=== PATIENT | female | born 1990 | race Caucasian/White ===

== ENCOUNTER 2020-08-28 10:28 | Observation (INO) ==
--- NOTE | 2020-08-23 11:29 | Anesthesiology Consultation ---
Date of Service August 23, 2020 Assessment & Plan (1) Encounter for pre-operative examination: COVID Status: As of 08/23 nurse assessment, patient denies travel to endemic area, known exposure/sick contacts, or symptoms of COVID19. Preoperative COVID19 testing completed on 08/22, results pending. HCG AM DOS Chart Review Chart Review: Acceptable Risk for Surgery and Patient NOT seen in Pre Admission Testing History Surgery Operation Date: 08/28/20 11:50 Proposed Procedures p Panniculectomy - Dina Sam MD Height/Weight Height: 5 ft 5 in Weight: 72.575 kg Allergies Allergy/AdvReac Type Severity Reaction Status Date / Time Penicillins Allergy Unknown AMOXIL--RASH, Verified 08/22/20 16:30 KEFLEX IS OK amoxicillin Allergy Rash Unverified 08/22/20 16:30 azithromycin Allergy Rash Unverified 08/22/20 16:30 erythromycin base AdvReac Unknown UPSET Verified 08/22/20 16:30 STOMACH, N/V CONTRCEPTIVES AdvReac Unknown BCPs CAUSE Uncoded 08/22/20 16:30 MIGRAINES Medications Home Medications Medication Instructions Recorded Confirmed Last Taken bupropion HCl [Wellbutrin XL] 450 mg PO QAM 11/04/19 08/22/20 11/03/19 fenofibrate nanocrystallized 145 mg PO QAM 11/04/19 08/22/20 11/03/19 [Tricor] oxycodone-acetaminophen 5 mg-325 1 tab PO Q4H PRN #18 tab 08/19/20 08/19/20 Unknown mg tablet Past Medical History Medical History (Updated 08/23/20 @ 11:29 by Hansel Reyes) History of renal stone Hyperlipidemia Osteoarthritis Weight loss, intentional Has lost 100lbs over the past 3 years via diet/exercise. Past Family History Family History Father Diabetes Grandmother (Maternal) Diabetes Other No family history of adverse response to anesthesia Past Surgical History Surgical History History of surgery left hand fifth digit History of tooth extraction S/P thyroid biopsy benign Social History Smoking Status: Never smoker Do You Dip or Chew Tobacco: No Hx Alcohol Use: Yes Alcohol type: hard liquor alcohol intake frequency: holidays/special occasions only Alcohol Intake Frequency Comment: jannie Ledbetter Substance Use: No substance use type: does not use Testing Laboratory Results 08/22/20 WBC: 3.89 H/H: 11.8/35.4 PLATELETS: 156 SODIUM: 142 POTASSIUM: 3.6 CHLORIDE: 110 CO2: 26 BUN: 22 CREATININE: 1.09 GLUCOSE: 94 PT: 10.9 PTT: 26.2 INR: 1.1
[~2020-08-28 10:28] MED LIST: LACTATED RINGER'S 1,000 ML IV SCH; ceFAZolin 2000MG 2,000 MG/15 ML SYR IV SCH
[2020-08-28] MEDS ORDERED: fentaNYL citrate 100 MCG/2 ML VIAL ONE ×3 (11:00→11:43)
[2020-08-28] MEDS ORDERED: ONDANSETRON INJ 2 MG/ML 2 ML VIAL ONE (11:00)
[2020-08-28] MEDS ORDERED: MIDAZOLAM HCL 1 MG/ML 2ML VIAL ONE (11:00)
[2020-08-28] MEDS ORDERED: GLYCOPYRROLATE 0.2 MG/ML VIAL ONE (11:00)
[2020-08-28] MEDS ORDERED: NEOSTIGMINE METHYLSULFATE 5 MG/5 ML SYR ONE (11:00)
[2020-08-28] MEDS ORDERED: DEXAMETHASONE SOD INJ 4 MG/ML VIAL ONE (11:00)
[2020-08-28] MEDS ORDERED: LIDOCAINE HCL 2% 2 ML VIAL/AMP(20MG/ML) INFIL ONE (11:00)
[2020-08-28] MEDS ORDERED: PHENYLEPHRINE HCL 10 MG/ML VIAL ONE (11:00)
[2020-08-28] MEDS ORDERED: ePHEDrine sulfate 50 MG/ML AMP ONE (11:00)
[2020-08-28] MEDS ORDERED: SUCCINYLCHOLINE CHLORIDE 20 MG/ML 10 ML VIAL IV ONE (11:00)
[2020-08-28] MEDS ORDERED: PROPOFOL IV EMULSION 10 MG/ML 20 ML VIAL IV ONE (11:00)
[2020-08-28] MEDS ORDERED: ePHEDrine sulfate 50 MG/ML AMP IV PRN (11:04)
[2020-08-28] MEDS ORDERED: HYDROmorphone INJ 2 MG/ML SYR/VIAL IV PRN (11:04)
[2020-08-28] MEDS ORDERED: ONDANSETRON INJ 2 MG/ML 2 ML VIAL IV PRN ×3 (11:04→15:40)
[2020-08-28] MEDS ORDERED: PROMETHAZINE HCL 6.25 MG in SODIUM CHLORIDE 0.9% 50 ML IV PRN (11:04)
[2020-08-28] MEDS ORDERED: ATROPINE SULFATE 0.1 MG/ML 10ML SYR IV PRN (11:04)
[2020-08-28] MEDS ORDERED: BUPIVACAINE 0.5 % 5 MG/1 ML PF 10ML VIAL ONE (11:24)
[2020-08-28] MEDS ORDERED: BUPIVACAINE LIPOSOME 1.3% 266 MG/20 ML VIAL ONE (11:31)
--- NOTE | 2020-08-28 11:35 | History & Physical Bridge Note ---
Date of Service August 28, 2020 History & Physical Bridge Note I have examined the patient, reviewed the History & Physical and in the interval since the performance of the History & Physical I have noted the following changes of clinical significance: took zyrtec for a rash last week, which resolved.
[2020-08-28] MEDS ORDERED: FAMOTIDINE/PF 20 MG/2 ML VIAL IV ONE (12:05)
[2020-08-28] MEDS ORDERED: BUPIVACAINE 0.25% 30 ML VIAL ONE (12:10)
[2020-08-28] MEDS ORDERED: LIDOCAINE/EPINEPHRINE 1% 20 ML VIAL ONE (12:10)
[2020-08-28] MEDS ORDERED: SCOPOLAMINE 1 MG TDSY TD ONE (12:13)
[2020-08-28] MEDS ORDERED: METOCLOPRAMIDE HCL INJ 5 MG/ML 2 ML VIAL ONE (12:35)
[2020-08-28] MEDS ORDERED: diphenhydrAMINE 50 MG/ML VIAL ONE (12:36)
--- NOTE | 2020-08-28 15:14 | Post Operative Brief Note ---
PG Immediate Post Op with CF Date of Surgery August 28, 2020 Pre & Post Diagnosis Operation Date: 08/28/20 11:50 Pre-Op Diagnosis: Abdominal Pannus Post-Op Diagnosis: Abdominal Pannus I identified the patient and participated in the time-out.: Yes Procedure Operation Date: 08/28/20 11:50 Actual Procedures p Panniculectomy(Not Applicable) - Dina Sam MD Surgeon Dina Sam MD Spool Sander Mercedez South PA-C Estimated Blood Loss 25 Findings Consistent with Post-Op Diagnosis Specimens Specimen Description: Permanent A. Pannus Drains Other (channel drain x2)
--- NOTE | 2020-08-28 15:16 | Operative Report ---
PG Post Operative Report Pre & Post Diagnosis Operation Date: 08/28/20 11:50 Pre-Op Diagnosis: Abdominal Pannus Post-Op Diagnosis: Abdominal Pannus I identified the patient and participated in the time-out.: Yes Procedure Operation Date: 08/28/20 11:50 Actual Procedures p Panniculectomy(Not Applicable) - Dina Sam MD Surgeon Dina Sam MD Clinical Education Specialist Mercedez South PA-C Estimated Blood Loss 25 Findings Consistent with Post-Op Diagnosis Specimens pannus Drains JPx2 Anesthesia Type General Complications none Disposition Disposition: Recovery Room Indications s/p massive weight loss with overhanging abdominal pannus Description of Procedure Risks, benefits, and alternatives of the procedure were explained to the patient who agreed and signed consent. She was identified and marked in the preoperative holding area. She was brought to the operating room where she was positioned supine and placed under general anesthesia without incident. Santana catheter was placed. Surgical site was prepped and draped sterilely. A time-out procedure was performed. I reassessed my markings which included a lower horizontal abdominal incision with the midportion 7 cm above the vulvar commissure. Incision was marked bilaterally to the ASIS. I began by injecting 1% lidocaine with epinephrine along the planned incision. The lower abdominal incision was made using a 15-blade scalpel to incise epidermis and superficial dermis followed by electrocautery to incise deep dermis, subcutaneous fat, Daya's fascia down to the abdominal wall. Care was taken to bevel superiorly in order to avoid encountering the inguinal region. Electrocautery was used to elevate the anterior abdominal skin flap ligating the perforating vessels with 3-0 Vicryl ties and electrocautery. Dissection was carried up to the level of the umbilicus in the midline. At this point, a 15-blade scalpel was used to circumscribe the umbilicus. A vertical midline incision was then made from the incision to the umbilicus and divided in the midline using electrocautery. The umbilicus was then dissected out using electrocautery down to abdominal wall. The umbilical stalk appeared viable throughout the procedure. In order to facilitate inset of the umbilicus, dissection was continued for about an additional 6 cm superior to the umbilicus in the midline. At this point, the bed was flexed and the mid portion of the superior skin flap was inset above the mons pubis using 2-0 Vicryl suture. Skin flaps were marked for excision. A 15-blade scalpel was used to make these incisions and the incision was deepened through dermis, subcutaneous fat, Daya's fat using electrocautery. Subscarpal fat was resected directly. A 15 Slovak Johan drains were placed in the wound bed and brought out through a separate stab incision in the mons pubis. The drains were sutured into place using 3-0 nylon. The umbilicus was brought out through an inverted triangular incision in the abdominal wall. This was performed using a 15-blade scalpel. Wound closure was then begun lateral to medial using 2-0 Vicryl Daya's fascia sutures, 2-0 Vicryl deep dermal sutures, 2-0 PDO running superficial Quill suture, 3-0 Monocryl running subcuticular suture. Umbilicus was brought out through the inverted triangle incision and was sutured into place using 4-0 chromic half buried horizontal mattress sutures. The umbilicus was dressed using Xeroform and the incision was dressed using Dermabond Prineo followed by dry dressings and an abdominal binder. Prior to closure, a total of 10 mL of 0.25% Marcaine plain were injected into the fascia as well as along the incisions. The procedure was tolerated well. The patient was awakened and transferred to recovery in satisfactory condition. Mercedez South PA-C was present and scrubbed throughout the entire procedure and was instrumental in providing retraction of the pannus and assisting in simultaneous wound closure. I attest to the content of the Intraoperative Record and any orders documented therein. Any exceptions are noted below.
[2020-08-28] MEDS ORDERED: PROMETHAZINE HCL 12.5 MG in SODIUM CHLORIDE 0.9% 50 ML IV PRN (15:37)
[2020-08-28] MEDS ORDERED: diphenhydrAMINE 50 MG/ML VIAL IV PRN (15:37)
[2020-08-28] MEDS ORDERED: LORazepam 0.5 MG TAB PO PRN (15:37)
[2020-08-28] MEDS ORDERED: oxyCODONE/ACETAMINOPHEN 5mg/325mg TAB PO PRN (15:37)
[2020-08-28] MEDS ORDERED: ACETAMINOPHEN 500 MG TAB PO PRN (15:37)
[2020-08-28] MEDS ORDERED: diphenhydrAMINE Capsule 25 MG CAP PO PRN (15:37)
[2020-08-28] MEDS: fentaNYL citrate 100 MCG/2 ML VIAL IV PRN ×2 (16:12→16:18)
--- NOTE | 2020-08-28 16:28 | Anesthesiology Progress Note ---
Date of Service August 28, 2020 Anesthesia Post Procedure Vital Signs Vital Signs: Temp Pulse Pulse Resp BP Pulse Ox 08/28/20 16:00 104 H 16 126/72 99 08/28/20 15:50 103 H 16 129/72 100 08/28/20 15:42 36.5 C 107 H 16 131/74 99 08/28/20 10:35 36.7 C 84 16 123/67 100 Transfer of Care Handoff Completed per policy Notes Mental Status: alert / awake / arousable Patient Amnestic to Procedure: Yes Nausea / Vomiting: adequately controlled Pain: adequately controlled Airway Patency, RR, SpO2: stable & adequate BP & HR: stable & adequate Hydration State: stable & adequate Anesthetic Complications: no major complications apparent
[2020-08-28] MEDS ORDERED: CETIRIZINE HCL 10 MG TABLET PO PRN (16:55)
[2020-08-28] MEDS: oxyCODONE/ACETAMINOPHEN 5mg/325mg TAB PO PRN (17:29)
[2020-08-28] MEDS: D5W AND 1/2NSS + 20MEQ KCL 20 MEQ/1,000 ML BAG IV SCH (17:29)
[2020-08-28] MEDS ORDERED: MoRPHine SULFATE 4 MG/ML 1 ML CARP\\VIAL IV PRN (18:01)
[2020-08-28] MEDS: CLINDAMYCIN 600 MG in DEXTROSE 5% 50 ML IV SCH (18:28)
--- NOTE | 2020-08-28 19:01 | Surgery Progress Note ---
Date of Service August 28, 2020 Assessment & Plan (1) S/P panniculectomy: s/p Panniculectomy. Giana is doing well. HR is elevated, but is most likely due to anxiety and some post-op discomfort. BP is stable. Pain is controlled with PRN Percocet. She is aware that arroyo catheter will be removed tomorrow at 6AM. YARON drains x [address] with bloody drainage- less than 10cc/drain at time of examination. Plan is to discharge to home tomorrow. Admission and Anticipated Discharge Date Admission Date: August 28, 2020 Subjective Giana is resting in bed with her sister, Araceli, at bedside. She reports that she is feeling well, denies pain, but notes that she does have some burning on her left side, above her incision. She denies any nausea. Physical Exam Physical Exam: On physical exam- abdominal binder in place- opened to view surgical dressings, which are clean and dry. I was able to view area where Giana was complaining that it was burning. This is on her left side, superior to her incision. There is no evidence of skin irritation. No evidence of he matoma formation. Dressings were reinforced and binder was reattached. Results & Data ([facility]) Vital Signs (Past 12 Hours) Vital Signs Temp Pulse Pulse Resp BP Pulse Ox 08/28/20 18:39 107 H 16 107/63 96 08/28/20 17:30 116 H 16 124/69 96 08/28/20 17:00 113 H 16 106/65 97 08/28/20 16:30 36.7 C 114 H 16 123/71 97 08/28/20 16:15 37.3 C 101 H 16 113/68 99 08/28/20 16:00 104 H 16 126/72 99 08/28/20 15:50 103 H 16 129/72 100 08/28/20 15:42 36.5 C 107 H 16 131/74 99 08/28/20 10:35 36.7 C 84 16 123/67 100 PG Care Time/CCT Total # of Minutes Spent Total Time Spent with Patient: Total time spent is greater than 50% in coordination of care (as documented) at patient's floor/unit and/or counseling patient: Coding Level of Care Code None Diagnoses S/P panniculectomy Z98.890
[2020-08-28] MEDS: MoRPHine SULFATE 2 MG/ML CARP IV PRN ×2 (19:25→23:18)
[2020-08-29] MEDS: D5W AND 1/2NSS + 20MEQ KCL 20 MEQ/1,000 ML BAG IV SCH ×2 (01:26→09:04)
[2020-08-29] MEDS: CLINDAMYCIN 600 MG in DEXTROSE 5% 50 ML IV SCH (03:31)
[2020-08-29] MEDS: MoRPHine SULFATE 2 MG/ML CARP IV PRN (06:04)
[2020-08-29] MEDS: oxyCODONE/ACETAMINOPHEN 5mg/325mg TAB PO PRN (07:40)
--- NOTE | 2020-08-29 08:24 | Anesthesiology Progress Note ---
Date of Service August 29, 2020 Anesthesia Post Procedure Vital Signs Vital Signs: Temp Pulse Pulse Resp BP Pulse Ox 08/29/20 07:27 37.1 C 92 H 16 92/59 L 99 08/29/20 06:23 91/59 L 08/29/20 03:34 36.6 C 88 12 86/53 L 98 08/28/20 22:19 36.6 C 102 H 14 99/60 L 98 08/28/20 19:36 36.7 C 114 H 15 99/57 L 96 08/28/20 18:39 107 H 16 107/63 96 08/28/20 17:30 116 H 16 124/69 96 08/28/20 17:00 113 H 16 106/65 97 08/28/20 16:30 36.7 C 114 H 16 123/71 97 08/28/20 16:15 37.3 C 101 H 16 113/68 99 08/28/20 16:00 104 H 16 126/72 99 08/28/20 15:50 103 H 16 129/72 100 08/28/20 15:42 36.5 C 107 H 16 131/74 99 08/28/20 10:35 36.7 C 84 16 123/67 100 Pain Intensity Abdomen: Pain Intensity: 3 Notes Mental Status: alert / awake / arousable Patient Amnestic to Procedure: Yes Nausea / Vomiting: adequately controlled Pain: adequately controlled Airway Patency, RR, SpO2: stable & adequate BP & HR: stable & adequate Hydration State: stable & adequate Anesthetic Complications: no major complications apparent and Pt Satisfied with anesthetic care
[2020-08-29] MEDS ORDERED: buPROPion XL 150 MG TABCR PO SCH (09:00)
[2020-08-29] MEDS ORDERED: ENOXAPARIN INJ 40 MG/0.4 ML SYR SQ SCH (09:00)
[2020-08-29] MEDS ORDERED: MULTIVITAMIN TAB PO SCH (09:00)
[2020-08-29] MEDS ORDERED: FENOFIBRATE NANOCRYSTALLIZED 145 MG TABLET PO SCH (09:00)
--- NOTE | 2020-08-29 11:33 | Surgery Progress Note ---
Date of Service August 29, 2020 Assessment & Plan (1) S/P panniculectomy: Patient is POD #1 s/p Panniculectomy. Dr. Sam in to see and examine patient. She reports that she is feeling well. Arroyo catheter has been removed and patient was able to void on her own. Her pain is controlled with PRN Percocet. We reviewed discharge instructions. We reviewed drain management. She is aware that she is to record drainage amounts. She is aware that she is to wear her abdominal binder continuously and that she is not allowed to shower. She has a follow-up appointment tomorrow in our office. All questions answered. She was encouraged to call our office if she has any additional questions or concerns. Admission and Anticipated Discharge Date Admission Date: August 28, 2020 Supervising Physician Co-Signing Physician Notes I personally saw and examined this patient and agree with the assessment and plan. Subjective Giana is resting comfortably in chair at bedside. She reports that she did well overnight. She does continue to have some burning on her left side, superior to incision. It is slowly improving. She denies any nausea. Her arroyo catheter was removed early this morning. Physical Exam Physical Exam: On physical exam- abdominal binder in place- opened to view surgical dressings, which are clean and dry. I was able to view area where Giana was complaining that it was burning. This is on her left side, superior to her incision. There is no evidence of skin irritation. No evidence of hematoma formation. Dressings were reinforced and binder was reattached. YARON drains x2 in place with bloody drainage. Scant amount of bloody drainage from left drain. Dr. Sam in to see and examine patient. Results & Data ([facility]) Vital Signs (Past 12 Hours) Vital Signs Temp Pulse Resp BP Pulse Ox 08/29/20 07:27 37.1 C 92 H 16 92/59 L 99 08/29/20 06:23 91/59 L 08/29/20 03:34 36.6 C 88 12 86/53 L 98 PG Care Time/CCT Total # of Minutes Spent Total Time Spent with Patient: Total time spent is greater than 50% in coordination of care (as documented) at patient's floor/unit and/or counseling patient: Coding Level of Care Code None Diagnoses S/P panniculectomy Z98.890
--- NOTE | 2020-08-29 11:52 | Discharge Summary ---
Date of Service August 29, 2020 Admission HPI Per Admitting Provider Please see admission H & P. Admission Exam Per Admitting Provider Please see admission H & P. Principal Diagnosis Abdomial Pannus Discharge Data Allergies Allergy/AdvReac Type Severity Reaction Status Date / Time Penicillins Allergy Unknown AMOXIL--RASH, Verified 08/28/20 10:56 KEFLEX IS OK amoxicillin Allergy Rash Unverified 08/28/20 10:56 azithromycin Allergy Rash Unverified 08/28/20 10:56 erythromycin base AdvReac Unknown UPSET Verified 08/28/20 10:56 STOMACH, N/V CONTRCEPTIVES AdvReac Unknown BCPs CAUSE Uncoded 08/28/20 10:56 MIGRAINES Procedures Performed Operation Date: 08/28/20 11:50 Actual Procedures p Panniculectomy(Not Applicable) - Dina Sam MD Ordered Studies 08/28/20 US - OR guided needle placemen Routine Hospital Course (1) Abdominal pannus: Giana is a 29-year-old female with abdominal pannus. She was taken to the OR and underwent Panniculectomy. There were no intraoperative complications. YARON drains x 2 were placed intraoperatively. She was take to recovery and transferred to med/surg for observation. On POD #1, she was feeling a bit sore, but was overall doing very well. Santana catheter was removed and she was able to void on her own. She was able to tolerate a regular diet. Her pain was controlled with as needed Percocet. She was able to ambulate without issue. On exam, her vital signs were stable. She was afebrile. Her incision was clean, dry,intact, and well-approximated. her umbilicus was viable and packed with Xeroform. She was educated on importance of wearing her abdom inal binder at all times. She is aware that she is not allowed to shower until she is cleared post-operatively at her 2 day office visit. She was discharged home with instructions to follow-up in the office in 1 day. All questions were answered. Total Time Total Time Spent Total Time Spent (In Minutes): 5 Discharge Plan Discharge Items Patient Disposition: Home - Self-Care Reason For Visit: Abdominal Pannus Discharge Diagnosis: Abdominal Pannus Activity: As commented below Non-emergency contact: Surgeon Call non-emergency contact if: you have any medication questions, your pain is not controlled, your temperature is above 101.5, your wound has increased redness and your wound has increased drainage Follow-up/Referrals: Lor Caba DO [Primary Care Provider] - Diet: Regular Addtl Attending Provider Instructions: ACTIVITY RECOMMENDATIONS: __Normal activities _X_No bending, lifting or straining __No driving _X_Driving allowed when you are off pain medications _X_Walking permitted __You should have help at home for ___ days DRESSINGS: __No dressings required _X_Keep abdominal binder and surgical dressings dry/in place until first office visit __Remove dressings ___ and leave dressings off __Apply ice ___ days __Remove dressings and reapply garment __Apply antibiotic ointment (Bacitracin, Neosporin, etc) to wounds 3-4 times/day for 10 days BATHING: _X_Keep dressings dry _X_Sponge bathing permitted, but remember to keep surgical dressings dry. __Showering permitted _X_No swimming, hot tubs or soaking in a tub MEDICATIONS: Resume previous medications unless instructed otherwise by your surgeon. X__Do not use aspirin, Motrin, Advil or Ibuprofen as these may promote bleeding. Please use Tylenol. X__Prescription(s) provided: Prescription for post-op pain medication sent to patient's pharmacy after last office visit. OTHER INSTRUCTIONS: _X_Record drain output 2-3 times per day- Please remember to record output amount from each drain separately. SPECIAL CARE INSTRUCTIONS: * It is normal to have a mild fever after surgery. If your temperature is higher than 101.5 degrees F, please call the office at [phone]. * Constipation is a typical side effect of pain medication. An over-the- counter stool softener will help relieve this. * Leaking around surgical drains may occur and should not cause concern. Sometimes these drains become clogged. If this happens, remove the bulb and milk the clot out of the tube, then replace the bulb. * If you have unusual drainage from a wound or are concerned you have an infection or have any questions or concerns, please call the office at [phone]. FOLLOW UP VISIT: If not already scheduled, please call the office, , when you return home after surgery to schedule an appointment to be seen in __1_ day. Pending Studies at Discharge: Yes Studies:: Pathology report. Stand-Alone Forms: [facility], Opioid Pain Management, Smoking Cessation Medications and DC Order Prescriptions: Continued ondansetron HCl [Zofran] 4 mg tablet 4 mg PO Q6H PRN (Reason: nausea and vomiting) Qty: 12 RF: 0 oxycodone-acetaminophen [Endocet] 5-325 mg tablet 1 tab PO Q4H PRN (Reason: pain) Qty: 18 RF: 0 bupropion HCl [Wellbutrin XL] 150 mg tablet extended release 24 hr 450 mg PO QAM RF: 0 fenofibrate nanocrystallized [Tricor] 145 mg tablet 145 mg PO QAM RF: 0 cetirizine [Zyrtec] 10 mg Tablet 10 mg PO TID PRN (Reason: Hives) RF: 0 Discharge Orders: Discharge Order (Routine); Ordered 08/29/20 Ordered By: Mercedez Orourke/Other Patient Handouts: Discharge Instructions Caring for ... Admission Data Admit Date/Time: 08/28/20 15:42 Attending Provider: Dina Sam Admit Provider: Dina Sam Primary Care Provider: Lor Caba Other Interventions: Discharge Summary Assessment (RN) Last Done: 08/29/20 10:01 Coding Level of Care Code 79557 OBS Care - Discharge Diagnoses Abdominal pannus E65
== END 2020-08-29 10:41 | disposition home or self-care (01) ==
LOC: ASU 10:28 → 3N 10:28